=== PATIENT | male | born 1985 | race Caucasian/White ===

== ENCOUNTER 2016-07-14 16:55 | Emergency (ER) | payer BC, MEDICAID ==
[2016-07-14] MEDS ORDERED: ONDANSETRON 4 MG VIAL ONE (17:58)
[2016-07-14] MEDS ORDERED: ORPHENADRINE 60 MG/2 ML AMP ONE (17:58)
[2016-07-14] MEDS ORDERED: MORPHINE 4 MG/ML SYR ONE ×2 (17:59→21:06)
== END 2016-07-14 21:21 | disposition home or self-care (01) ==
LOC: ER 16:55
DX: S16.1XXA Strain of muscle, fascia and tendon at neck level, initial encounter (principal); S33.5XXA Sprain of ligaments of lumbar spine, initial encounter; W17.89XA Other fall from one level to another, initial encounter; Y93.H9 Activity, other involving exterior property and land maintenance, building and construction; Y92.007 Garden or yard of unspecified non-institutional (private) residence as the place of occurrence of the external cause
CPT/HCPCS: 72040; 72072; 72100; 72128; 96374; 96375; 96376